=== PATIENT | female | born 1975 | race Caucasian/White ===

== ENCOUNTER → 2019-07-05 | Outpatient (CLI) | payer BC | END | disposition home or self-care (01) | LOC: MAMMO 11:22 | DX: Z12.31 Encounter for screening mammogram for malignant neoplasm of breast (principal) ==

== ENCOUNTER → 2023-06-09 | Outpatient (CLI) | payer BC | END | disposition home or self-care (01) | LOC: MAMMO 01:35 | PROVIDERS: ATTEND Internal Medicine | DX: Z12.31 Encounter for screening mammogram for malignant neoplasm of breast (principal) ==

== ENCOUNTER → 2024-08-30 | Outpatient (CLI) | payer BC | END | disposition home or self-care (01) | LOC: MAMMO 01:47 | PROVIDERS: ATTEND Physician Assistant | DX: Z12.31 Encounter for screening mammogram for malignant neoplasm of breast (principal) ==